=== PATIENT | female | born 1950 | race Caucasian/White ===

== ENCOUNTER 2016-08-24 06:05 | Day surgery (SDC) | payer MEDICARE ==
--- NOTE | ~2016-08-24 | EGD ---
EGD REPORT [facility] [address] [place] [address] NAME: SANDRINE RAM : [birth year] STATUS : REG [facility] [place] PAT#: [id number] AGE: 65 ADM/REG DATE : 08/24/16 MR#: [id number] REPORT SERV DATE: 08/24/16 DICTATED BY: SALIMA HARDEN DATE: 08/24/16 REPORT STATUS : Draft TRANSCRIBED BY: [employer] DATE: 08/24/16 Endoscopy Center Patient Name: Sandrine Ram Date of : 1950 Attending MD: SALIMA HARDEN, Procedure Date No Time: 08/24/2016 Procedure: Upper GI endoscopy Indications: Iron deficiency anemia, Heartburn Referring MD: Brennan JUAREZ Medicines: Monitored Anesthesia Care Complications: No immediate complications. Estimated blood loss: None. Procedure: Pre-Anesthesia Assessment: - ASA Grade Assessment: II - A patient with mild systemic disease. After obtaining informed consent, the endoscope was passed under direct vision. Throughout the procedure, the patient's blood pressure, pulse, and oxygen saturations were monitored continuously. The GIF [id number] was introduced through the mouth, and advanced to the second part of duodenum. The upper GI endoscopy was accomplished without difficulty. The patient tolerated the procedure well. Findings: The esophagus was normal. A 9 cm hiatus hernia was present. Patchy mild inflammation was found in the entire examined stomach. Biopsies were taken with a cold forceps for histology. Verification of patient identification for the specimen was done. Estimated blood loss was minimal. Patchy moderate inflammation characterized by erosions, erythema and shallow ulcerations was found in the duodenal bulb. Biopsies were taken with a cold forceps for histology. Verification of patient identification for the specimen was done. Estimated blood loss was minimal. The examined duodenum was normal. Biopsies were taken with a cold forceps for histology. Verification of patient identification for the specimen was done. Estimated blood loss was minimal. Impression: - Normal esophagus. - Hiatus hernia. - Gastritis. Biopsied. - Duodenitis. Biopsied. - Normal examined duodenum. Biopsied. EGD REPORT [address] [address] NAME: SANDRINE RAM WILLIAN : [birth year] STATUS : REG [facility] [place] PAT#: [id number] AGE: 65 ADM/REG DATE : 08/24/16 MR#: [id number] REPORT SERV DATE: 08/24/16 DICTATED BY: SALIMA HARDEN DATE: 08/24/16 REPORT STATUS : Draft TRANSCRIBED BY: [employer] DATE: 08/24/16 Recommendation: - Patient has a contact number available for emergencies. The signs and symptoms of potential delayed complications were discussed with the patient. Return to normal activities tomorrow. Written discharge instructions were provided to the patient. - Return to previous diet. - Continue present medications. - Use Prilosec (omeprazole) 40 mg PO daily. Procedure Code(s): --- Professional --- 71495, Esophagogastroduodenoscopy, flexible, transoral; with biopsy, single or multiple Diagnosis Code(s): --- Professional --- K44.9, Diaphragmatic hernia without obstruction or gangrene K29.70, Gastritis, unspecified, without bleeding K29.80, Duodenitis without bleeding D50.9, Iron deficiency anemia, unspecified R12, Heartburn CPT copyright 2013 [employer]. All rights reserved. The codes documented in this report are preliminary and upon telesales consultant review may be revised to meet current compliance requirements. SALIMA HARDEN, 08/24/2016 8:07 AM Number of Addenda: 0 Note Initiated On: 08/24/2016 7:26 AM Scope Withdrawal Time 0 hours 0 minutes 0 seconds [id number] [id number]
--- NOTE | ~2016-08-24 | EGD ---
EGD REPORT [facility] [address] [place] [address] NAME: SANDRINE RAM : [birth year] STATUS : REG [facility] [place] [place] PAT#: [id number] AGE: 65 ADM/REG DATE : 08/24/16 MR#: [id number] REPORT SERV DATE: 08/24/16 DICTATED BY: SALIMA HARDEN DATE: 08/24/16 REPORT STATUS : Draft TRANSCRIBED BY: [employer] DATE: 08/24/16 Endoscopy Center Patient Name: Sandrine Ram Date of : 1950 Attending MD: SALIMA HARDEN, Procedure Date No Time: 08/24/2016 Procedure: Colonoscopy Indications: Iron deficiency anemia Referring MD: Brennan JUAREZ Medicines: Monitored Anesthesia Care Complications: No immediate complications. Estimated blood loss: None. Procedure: Pre-Anesthesia Assessment: - ASA Grade Assessment: II - A patient with mild systemic disease. After I obtained informed consent, the scope was passed under direct vision. Throughout the procedure, the patient's blood pressure, pulse, and oxygen saturations were monitored continuously. The CF [id number] was introduced through the anus and advanced to the cecum, identified by appendiceal orifice and ileocecal valve. The colonoscopy was performed without difficulty. The patient tolerated the procedure well. The quality of the bowel preparation was good. Findings: The perianal and digital rectal examinations were normal. A sessile polyp was found at the hepatic flexure. The polyp was 12 mm in size. The polyp was removed with a hot snare. Resection and retrieval were complete. Verification of patient identification for the specimen was done. Estimated blood loss was minimal. A sessile polyp was found in the sigmoid colon. The polyp was 7 mm in size. The polyp was removed with a hot snare. Resection and retrieval were complete. Verification of patient identification for the specimen was done. Estimated blood loss was minimal. A sessile polyp was found in the sigmoid colon. The polyp was 4 mm in size. The polyp was removed with a cold snare. Resection and retrieval were complete. Verification of patient identification for the specimen was done. Estimated blood loss was minimal. A few small-mouthed diverticula were found in the sigmoid colon. The exam was otherwise without abnormality. Impression: - One 12 mm polyp at the hepatic flexure. Resected and retrieved. - One 7 mm polyp in the sigmoid colon. Resected and retrieved. EGD REPORT [address] [place]. [address] NAME: SANDRINE RAM : [birth year] STATUS : REG [facility]#: [id number] AGE: 65 ADM/REG DATE : 08/24/16 MR#: [id number] REPORT SERV DATE: 08/24/16 DICTATED BY: SALIMA HARDEN DATE: 08/24/16 REPORT STATUS : Draft TRANSCRIBED BY: [employer] DATE: 08/24/16 - One 4 mm polyp in the sigmoid colon. Resected and retrieved. - Diverticulosis in the sigmoid colon. - The examination was otherwise normal. Recommendation: - Patient has a contact number available for emergencies. The signs and symptoms of potential delayed complications were discussed with the patient. Return to normal activities tomorrow. Written discharge instructions were provided to the patient. - Return to previous diet. - Continue present medications. - Await pathology results. - Repeat colonoscopy for surveillance based on pathology results. Procedure Code(s): --- Professional --- 93789, Colonoscopy, flexible, proximal to splenic flexure; with removal of tumor(s), polyp(s), or other lesion(s) by snare technique Diagnosis Code(s): --- Professional --- D12.5, Benign neoplasm of sigmoid colon D12.3, Benign neoplasm of transverse colon K57.30, Diverticulosis of large intestine without perforation or abscess without bleeding D50.9, Iron deficiency anemia, unspecified CPT copyright 2013 [employer]. All rights reserved. The codes documented in this report are preliminary and upon shoe ironer review may be revised to meet current compliance requirements. SALIMA HARDEN, 08/24/2016 8:09 AM Number of Addenda: 0 Note Initiated On: 08/24/2016 7:26 AM Scope Withdrawal Time 0 hours 15 minutes 6 seconds [id number] [id number]
[~2016-08-24 06:05] MED LIST: CELEXA20 PO; MELATONIN10 M2 PO; PRIN10 PO; ZANTAC 150 PO; ZOCOR40 PO
== END 2016-08-24 23:59 | disposition home or self-care (01) ==
LOC: DMU 06:05
PROVIDERS: Internal Medicine Gastroenterology
PROC: 0DB68ZX Excision of Stomach, Via Natural or Artificial Opening Endoscopic, Diagnostic (ICD-10-PCS; 2016-08-24)
PROC: 0DB98ZX Excision of Duodenum, Via Natural or Artificial Opening Endoscopic, Diagnostic (ICD-10-PCS; 2016-08-24)
PROC: 0DBL8ZX Excision of Transverse Colon, Via Natural or Artificial Opening Endoscopic, Diagnostic (ICD-10-PCS; principal; 2016-08-24 07:30)
PROC: 0DBN8ZX Excision of Sigmoid Colon, Via Natural or Artificial Opening Endoscopic, Diagnostic (ICD-10-PCS; 2016-08-24 07:30)
DX: D12.3 Benign neoplasm of transverse colon (principal); K44.9 Diaphragmatic hernia without obstruction or gangrene; K57.30 Diverticulosis of large intestine without perforation or abscess without bleeding; K21.9 Gastro-esophageal reflux disease without esophagitis; I10 Essential (primary) hypertension; E78.00 Pure hypercholesterolemia, unspecified; Z87.891 Personal history of nicotine dependence; Z91.030 Bee allergy status; Z98.51 Tubal ligation status; Z98.890 Other specified postprocedural states; Z79.899 Other long term (current) drug therapy
CPT/HCPCS: 88305